=== PATIENT | female | born 1975 | race Caucasian/White ===

== ENCOUNTER 2017-01-22 19:17 | Emergency (ER) | payer OTHER ==
[~2017-01-22] VITALS: Ht 162.6 cm; Wt 68.0 kg
[2017-01-22] MEDS ORDERED: CETI10CA PO (19:31)
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
[2017-01-22 20:08] LABS: BASOPHILS % (AUTO) 0 % (0-10); EOSINOPHILS # (AUTO) 0.4 10^3/uL (0.0-0.3); EOSINOPHILS % (AUTO) 5 % (0-10); LYMPHOCYTES # (AUTO) 2.7 X 10^3 (1.0-4.0); LYMPHOCYTES % (AUTO) 32 % (12-44); MEAN CORPUSCULAR HEMOGLOBIN 31 PG (25-34); MEAN CORPUSCULAR HGB CONC 33 G/DL (32-36); MEAN CORPUSCULAR VOLUME 94 FL (80-99); MEAN PLATELET VOLUME 10.3 FL (7.4-10.4); MONOCYTES # (AUTO) 0.9 X 10^3 (0.0-1.0); MONOCYTES % (AUTO) 11 % (0-12); NEUTROPHILS # (AUTO) 4.5 X 10^3 (1.8-7.8); NEUTROPHILS % (AUTO) 53 % (42-75); PLATELET COUNT 261 10^3/uL (130-400); RED BLOOD COUNT 4.68 10^6/uL (4.35-5.85); RED CELL DISTRIBUTION WIDTH 13.2 % (10.0-14.5); WHITE BLOOD COUNT 8.6 10^3/uL (4.3-11.0)
[2017-01-22 20:27] LABS: ALANINE AMINOTRANSFERASE 64 U/L (0-55); ALBUMIN 4.1 GM/DL (3.2-4.5); AMYLASE 59 U/L (25-125); ANION GAP 6 MMOL/L (5-14); ASPARTATE AMINO TRANSFERASE 53 U/L (5-34); BLOOD UREA NITROGEN 13 MG/DL (7-18); BUN/CREATININE RATIO 18 (0-20); CALCIUM 9.6 MG/DL (8.5-10.1); CARBON DIOXIDE 26 MMOL/L (21-32); CHLORIDE 108 MMOL/L (98-107); CREATININE SERUM 0.71 MG/DL (0.60-1.30); GFR ESTIMATED > 60; GLUCOSE 93 MG/DL (70-105); HEMOLYSIS 10 (-100-29); ICTERUS 0.5 (-100-1.9); LIPASE 21 U/L (8-78); LIPEMIA 12 (-100-49); SODIUM 140 MMOL/L (135-145); TOTAL PROTEIN 7.1 GM/DL (6.4-8.2)
[2017-01-22 20:43] LABS: BILIRUBIN,URINE NEGATIVE (NEGATIVE); KETONES,URINE NEGATIVE (NEGATIVE); LEUKOCYTE ESTERASE ,URINE NEGATIVE (NEGATIVE); NITRITE,URINE NEGATIVE (NEGATIVE); PH,URINE 6 (5-9); PROTEIN,URINE NEGATIVE (NEGATIVE); UROBILINOGEN,URINE NORMAL (NORMAL)
[2017-01-22 20:43] LABS: BILIRUBIN,TOTAL 0.4 MG/DL (0.1-1.0)
[2017-01-22 21:06] LABS: WBC,URINE RARE /HPF
[2017-01-22] MEDS ORDERED: RX-ONDANSETRON 4 MG ODT (ZOFRAN) PPK #4 PO STA (21:09)
[2017-01-22] MEDS ORDERED: RX-HYDROCODONE/APAP 5/325 MG #4 TAB PK PO PRN (21:15)
[2017-01-22 21:21] VITALS: BP 124/80
--- OUTSIDE RECORDS SUMMARY | 2017-01-26 14:26 | XMS REPORT | Continuity of Care Document ---
Author Author [facility] Address Unknown Phone Unavailable Allergies Medications Problems Date Dx Coded Attending Type Code Diagnosis Diagnosed By 09/05/2013 ENMA WHITE DDS V72.2 DENTAL EXAMINATION Procedures Code Description Performed By Performed On D0140 LIMIT ORAL EVAL PROBLM FOCUS 09/05/2013 D0220 INTRAORAL PERIAPICAL FIRST F 09/05/2013 D2393 POST 3 SRFC RESINBASED CMPST 09/05/2013 Results Encounters ACCT No. Visit Date/Time Discharge Status Pt. Type Provider Facility Loc./Unit Complaint [id number] 09/05/2013 13:19:00 09/05/2013 23: 59:59 CLS Outpatient ENMA WHITE DDS
--- OUTSIDE RECORDS SUMMARY | 2017-01-26 14:26 | XMS REPORT | Continuity of Care Document ---
Author Author [employer] Organization [facility] Address Unknown Phone Unavailable Care Team Providers Care Shirt Folder Name Role Phone [employer] Unavailable Unavailable Problems Medications Allergies, Adverse Reactions, Alerts Immunizations Results Vital Signs Encounters Procedures Plan of Care Social History Assessment and Plan Family History Value Date Source Advance Directives Order Name Results Value Date Source
== END 2017-01-22 21:20 | disposition home or self-care (01) ==
LOC: ER 19:23
DX: K81.9 Cholecystitis, unspecified (principal); R19.7 Diarrhea, unspecified; F43.10 Post-traumatic stress disorder, unspecified; F41.9 Anxiety disorder, unspecified; F32.9 Major depressive disorder, single episode, unspecified; F17.210 Nicotine dependence, cigarettes, uncomplicated; Z90.710 Acquired absence of both cervix and uterus
CPT/HCPCS: 36415; 80053; 80306; 81000; 82150; 83690; 85025

== ENCOUNTER → 2017-01-23 | Outpatient (CLI) | payer OTHER ==
[~2017-01-23] MED LIST: CETI10CA PO
--- NOTE | 2017-01-23 15:51 | Diagnostic Imaging Report ---
PROCEDURE: US Gallbladder. TECHNIQUE: Multiple real-time grayscale images were obtained over the right upper quadrant in various projections. INDICATION: Right upper quadrant pain. COMPARISON: None available. FINDINGS: The liver is normal in size and echogenicity. There is no focal hepatic mass. The main portal vein is patent with antegrade flow. The gallbladder is distended without gallstones, wall thickening, or pericholecystic fluid. The common bile duct measures up to 0.4 cm in diameter. No intrahepatic biliary dilation. The visualized portions of the pancreas are normal. Portions of the head and tail are obscured by overlying bowel gas. The right kidney is normal in size. No hydronephrosis, shadowing calculi, or suspicious mass lesion. IMPRESSION: Normal right upper quadrant ultrasound. Dictated by: Dictated on workstation # [id number]
== END ==
LOC: RAD 14:25
PROVIDERS: ATTEND Family Medicine
DX: R10.11 Right upper quadrant pain (principal); R74.8 Abnormal levels of other serum enzymes
CPT/HCPCS: 76705

== ENCOUNTER → 2021-02-12 | Outpatient (CLI) | payer OTHER, MEDICARE, MEDICAID ==
--- NOTE | 2021-02-12 09:02 | Diagnostic Imaging Report ---
PROCEDURE: CT urinary tract, rule out kidney stone. TECHNIQUE: Multiple contiguous axial images were obtained through the abdomen and pelvis without the use of intravenous contrast. Auto Exposure Controls were utilized during the CT exam to meet ALARA standards for radiation dose reduction. INDICATION: Right flank pain FINDINGS: Unenhanced images of liver, gallbladder, pancreas, adrenal glands and spleen are unremarkable. There is faint punctate calcification in the posterior cortex of the lower pole of right kidney. No hydronephrosis or ureteric stone is identified. There is no free fluid in the abdomen or pelvis. Moderate amount of stool seen throughout the colon. There appears to be surgical suture in the right lower quadrant possibly from previous hysterectomy and appendectomy. Calcified phleboliths are seen. There is an approximately 2.2 cm cyst in the left ovary. Unopacified urinary bladder is unremarkable. There is localized L5-S1 degenerative disc disease. IMPRESSION: Minimal right nephrolithiasis. There is no evidence of obstructive uropathy. Dictated by: Dictated on workstation # [id number]
== END ==
LOC: RAD FS 02-11 16:34
PROVIDERS: ATTEND Nurse Practitioner Family
DX: N20.0 Calculus of kidney (principal)
CPT/HCPCS: 74176

== ENCOUNTER 2022-12-26 12:34 | Emergency (ER) | payer MEDICARE, MEDICAID ==
[~2022-12-26] VITALS: Ht 165 cm; Wt 65.7 kg
--- NOTE | 2022-12-26 13:12 | ED Abdominal Pain ---
General Chief Complaint: Abdominal/GI Problems Stated Complaint: ABD PAIN Nursing Triage Note: PT AMB TO RM 7 WITH C/O UPPER ABD PAIN THAT RADIATES TO THE BACK THAT STARTED 1 WEEK AGO. Source of Information: Patient Exam Limitations: No Limitations History of Present Illness Date Seen by Provider: December 26, 2022 Time Seen by Provider: 12:36 Initial Comments 47-year-old female presents to the ER with complaints of right upper quadrant abdominal pain and right mid back pain that has been intermittent for the last week. She reports that she thinks the pain is often worse after eating, but also occurs without eating. States it is not always after eating greasy foods, but does report 1 meal with greasy food that caused her to have severe pain almost instantly. She reports that at 4 AM this morning the pain was the worst. She reports cold sweats with the pain. Denies fevers. She denies chest pain, shortness of air. Reports nausea, no vomiting. Denies diarrhea, vaginal bleeding, vaginal discharge, dysuria. Last bowel movement was this morning at 4 AM. Past medical history includes bone spurs in her right knee, she does not take any medications regularly. 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 She does not want narcotic pain medicine. Allergies and Home Medications Allergies Coded Allergies: No Known Drug Allergies (Unverified , 01/22/17) Patient Home Medication List Home Medication List Reviewed: Yes Cetirizine HCl (Zyrtec) 10 Mg Capsule, 10 MG PO, (Reported) Entered as Reported by: CAMPOS SHAY on 01/22/171930 Review of Systems Review of Systems Constitutional: see HPI Past Xgrmeap-Tupcuh-Aoznvi Hx Patient Social History Tobacco Use?: Yes Tobacco type used: Cigarettes Substance use?: Yes Substance type: Methamphetamine (sober 21 months) Alcohol Use?: No Past Medical History Surgeries: Yes Adenoidectomy, Hysterectomy, Tonsillectomy Respiratory: No Cardiac: No Neurological: No Genitourinary: No Gastrointestinal: No Musculoskeletal: No Endocrine: No HEENT: No Cancer: No Psychosocial: Yes PTSD, Bipolar Integumentary: No Blood Disorders: No Physical Exam Vital Signs Vital Signs - First Documented 12/26/22 12/26/22 12:43 15:16 Pulse 84 Resp 16 B/P (MAP) 117/84 (95) Pulse Ox 98 O2 Delivery Room Air Capillary Refill : Height/Weight/BMI Height: 5'4.00" Weight: 150lbs. oz. 68.777752nm; 24.00 BMI Method:Stated General Appearance: WD/WN, no apparent distress Neck: supple, normal inspection Respiratory: lungs clear, normal breath sounds, no respiratory distress, no accessory muscle use Cardiovascular: regular rate, rhythm Gastrointestinal: normal bowel sounds, soft, tenderness (Mild right upper quadrant tenderness) Extremities: normal range of motion, normal inspection Back: no CVA tenderness Neurologic/Psychiatric: alert, normal mood/affect Skin: normal color, warm/dry Progress/Results/Core Measures Results/Orders Lab Results Laboratory Tests Test 12/26/22 13:43 12/26/22 13:44 Range/Units Urine Color YELLOW Urine Clarity CLEAR Urine pH 6.0 5-9 Urine Specific [place] 1.015 L 1.016-1.022 Urine Protein NEGATIVE NEGATIVE Urine Glucose (UA) NEGATIVE NEGATIVE Urine Ketones 1+ H NEGATIVE Urine Nitrite NEGATIVE NEGATIVE Urine Bilirubin NEGATIVE NEGATIVE Urine Urobilinogen 0.2 < = 1.0 MG/DL Urine Leukocyte Esterase NEGATIVE NEGATIVE Urine RBC (Auto) TRACE-I H NEGATIVE Urine RBC NONE /HPF Urine WBC 0-2 /HPF Urine Squamous Epithelial Cells 10-25 H /HPF Urine Renal Epithelial Cells 0-2 /HPF Urine Crystals NONE /LPF Urine Bacteria TRACE /HPF Urine Casts NONE /LPF Urine Mucus NEGATIVE /LPF Urine Culture Indicated NO White Blood Count 8.8 4.3-11.0 10^3/uL Red Blood Count 4.49 3.80-5.11 10^6/uL Hemoglobin 14.2 11.5-16.0 g/dL Hematocrit 42 35-52 % Mean Corpuscular Volume 94 80-99 fL Mean Corpuscular Hemoglobin 32 25-34 pg Mean Corpuscular Hemoglobin Concent 34 32-36 g/dL Red Cell Distribution Width 12.8 10.0-14.5 % Platelet Count 214 130-400 10^3/uL Mean Platelet Volume 11.1 9.0-12.2 fL Immature Granulocyte % (Auto) 0 % Neutrophils (%) (Auto) 68 42-75 % Lymphocytes (%) (Auto) 23 12-44 % Monocytes (%) (Auto) 6 0-12 % Eosinophils (%) (Auto) 2 0-10 % Basophils (%) (Auto) 1 0-10 % Neutrophils # (Auto) 5.9 1.8-7.8 10^3/uL Lymphocytes # (Auto) 2.0 1.0-4.0 10^3/uL Monocytes # (Auto) 0.6 0.0-1.0 10^3/uL Eosinophils # (Auto) 0.2 0.0-0.3 10^3/uL Basophils # (Auto) 0.1 0.0-0.1 10^3/uL Immature Granulocyte # (Auto) 0.0 0.0-0.1 10^3/uL Sodium Level 139 135-145 MMOL/L Potassium Level 3.7 3.6-5.0 MMOL/L Chloride Level 108 H 98-107 MMOL/L Carbon Dioxide Level 21 21-32 MMOL/L Anion Gap 10 5-14 MMOL/L Blood Urea Nitrogen 7 7-18 MG/DL Creatinine 0.68 0.60-1.30 MG/DL Estimat Glomerular Filtration Rate 107 BUN/Creatinine Ratio 10 Glucose Level 86 70-105 MG/DL Calcium Level 9.4 8.5-10.1 MG/DL Corrected Calcium 9.4 8.5-10.1 MG/DL Total Bilirubin 0.6 0.1-1.0 MG/DL Aspartate Amino Transf (AST/SGOT) 16 5-34 U/L Alanine Aminotransferase (ALT/SGPT) 12 0-55 U/L Alkaline Phosphatase 40 40-136 U/L Total Protein 6.4 6.4-8.2 GM/DL Albumin 4.0 3.2-4.5 GM/DL Amylase Level 51 25-125 U/L Lipase 20 8-78 U/L My Orders Orders - DOMINIQUE RICHARDS WASH OIL COOLER OPERATOR Ua Culture If Indicated (12/26/22 12:36) Urine Bedside (12/26/22 12:36) Comprehensive Metabolic Panel (12/26/22 12:51) Lipase (12/26/22 12:51) Amylase (12/26/22 12:51) Cbc With Automated Diff (12/26/22 12:51) Ketorolac Injection (Toradol Injection) (12/26/22 13:15) Ondansetron Injection (Zofran Injectio (12/26/22 13:15) Us Gallbladder [id number] (12/26/22 13:03) Ct Abdomen/Pelvis W (12/26/22 13:28) Iohexol Injection (Omnipaque 350 Mg/Ml 1 (12/26/22 13:45) Received Contrast (Hold Metformin- Contr (12/26/22 13:45) Ns (Ivpb) (Sodium Chloride 0.9% Ivpb Bag (12/26/22 13:45) Pantoprazole Injection (Protonix Injecti (12/26/22 14:45) Medications Given in ED Vital Signs/I&O 12/26/22 12/26/22 12:43 15:16 Pulse 84 84 Resp 16 B/P (MAP) 117/84 (95) 112/90 Pulse Ox 98 97 O2 Delivery Room Air Blood Pressure Mean: 95 Progress Progress Note : Progress Note Patient seen and evaluated, resting in bed, mild distress. Based on exam and symptoms, differential diagnosis includes but is not limited to urinary cholecystitis, nephrolithiasis, pyelonephritis, GERD, gastritis work-up initiated including CBC, CMP, amylase, lipase, UA, gallbladder ultrasound. Toradol and Zofran ordered. 1329 sales support technician reports that gallbladder appeared normal on ultrasound. CT abdomen pelvis ordered. [address] reviewed. CBC grossly normal. CMP grossly normal, chloride slightly elevated 108. UA shows 1+ ketones, trace RBCs, 0-2 WBCs, 10-25 squamous epithelial cells, trace bacteria this is likely a contaminated specimen. Ultrasound shows small amount of pelvic free fluid of uncertain significance. No other acute abnormalities. No evidence of gallbladder inflammation. Stable L5-S1 degenerative disc disease. Results discussed with patient. Informed her this is likely gastritis or peptic ulcer disease. We will treat with an IV dose of Protonix here and discharged with instructions to hand picker with 6-week course of omeprazole. Patient instructed that she can try Tums [id number] for rapid relief. Patient instructed to follow-up with surgery for evaluation for endoscopy. Discharge instructions and return precautions provided. Diagnostic Imaging Diagonstic Imaging: Ultrasound Plain Films/CT/US/NM/MRI: abdomen Comments [facility] [place], [place] NAME: JERALD REDDY [facility] REC#: [id number] PT STATUS: DEP ER : 1975 PHYSICIAN: DOMINIQUE RICHARDS APRN ADMIT DATE: 12/26/22/ER Signed Date of Exam:12/26/22 US GALLBLADDER [id number] PROCEDURE: US Gallbladder. TECHNIQUE: Multiple real-time grayscale images were obtained over the right upper quadrant in various projections. INDICATION: Right upper quadrant pain. The liver is upper limits of normal in size at 17.7 cm. Portal vein is patent and shows normal direction of flow. Gallbladder is mildly contracted but no stones or sludge are identified. There is no wall thickening or biliary ductal dilatation. The pancreas is unremarkable. Aorta is nonaneurysmal. IVC is patent. Right kidney is without calculi or hydronephrosis. There is no ascites. IMPRESSION: No evidence of cholelithiasis or acute cholecystitis. Dictated by: Dictated on workstation # [id number] Dict: 12/26/22 1345 Trans: 12/26/22 1515 [facility] [phone] Interpreted by: CHAD VITALE MD Electronically signed by: CHAD VITALE MD 12/26/22 1515 Diagonstic Imaging: CT Plain Films/CT/US/NM/MRI: abdomen, pelvis Comments [facility] [place] NAME: JERALD REDDY [facility] REC#: [id number] PT STATUS: [facility] ER : 1975 PHYSICIAN: DOMINIQUE RICHARDS APRN ADMIT DATE: 12/26/22/ER Signed Date of Exam:12/26/22 CT ABDOMEN/PELVIS W PROCEDURE: CT abdomen and pelvis with contrast. TECHNIQUE: Multiple contiguous axial images were obtained through the abdomen and pelvis after administration of intravenous contrast. Auto Exposure Controls were utilized during the CT exam to meet ALARA standards for radiation dose reduction. All CT scans use one or more of the following dose optimizing techniques: automated exposure control, MA and/or KvP adjustment based on patient size and exam type or iterative reconstruction. INDICATION: Right upper quadrant abdominal pain. COMPARISON: 02/12/2022 There is no focal hepatic, gallbladder, pancreatic or splenic abnormality. Adrenal glands are mildly enlarged with low-density suggestive of adrenal gland adenomas. Kidneys are unremarkable without evidence of mass, calculus or hydronephrosis. There is no evidence of hydroureter or obstructive uropathy. Unopacified bladder is unremarkable. There is small amount of pelvic free fluid. There is no evidence of focal inflammation or organized fluid collection within the abdomen or pelvis. There is stable L5-S1 degenerative disc disease. IMPRESSION: Mild pelvic free fluid of uncertain significance without other acute abnormality seen within the abdomen or pelvis. In particular, there is no evidence of gallbladder inflammation or obstructive uropathy. Dictated by: Dictated on workstation # [id number] Dict: 12/26/22 1413 Trans: 12/26/22 1710 [facility] [phone] Interpreted by: MAREN BASS MD Electronically signed by: MAREN BASS MD 12/26/22 1710 Departure Impression Primary Impression: Gastritis Qualified Codes: K29.00 - Acute gastritis without bleeding Disposition: HOME, SELF-CARE Condition: Stable Departure-Patient Inst. Decision time for Depature: 14:36 Referrals: [facility] (PCP/Family) Primary Care Physician SOURAV HOUSE DO Patient Instructions: Peptic Ulcers (DC), Ulcer and Gastritis Diet Add. Discharge Instructions: Get the 6-week qiet-ibf-zcwmhkz omeprazole and start taking. Avoid spicy foods, acidic foods, caffeine, coffee. See discharge instructions for other foods to avoid, and for foods that are good to eat. Follow-up with surgery for evaluation for endoscopy. Follow-up with primary care provider. Return for severe pain, or any other new, concerning, or worsening symptoms. All discharge instructions reviewed with patient and/or family. Voiced understanding. DOMINIQUE RICHARDS APRN December 26, 2022 13:12
[2022-12-26] MEDS ORDERED: ONDANSETRON 4 MG/2 ML (SDV) Z0FRAN IVP ONE (13:15)
[2022-12-26] MEDS ORDERED: KETOROLAC 15 MG/ML VIAL IVP ONE (13:15)
[2022-12-26] MEDS ORDERED: NS 100 ML (IVPB) BAG IV ONE (13:45)
[2022-12-26] MEDS ORDERED: IOHEXOL 350 MG/ML 100 ML (OMNIPAQUE 350) VIAL IV ONE (13:45)
[2022-12-26] MEDS ORDERED: HOLD METFORMIN - RECEIVED CONTRAST 20 ML VIAL IV SCH (13:45)
--- NOTE | 2022-12-26 13:49 | Diagnostic Imaging Report ---
PROCEDURE: US Gallbladder. TECHNIQUE: Multiple real-time grayscale images were obtained over the right upper quadrant in various projections. INDICATION: Right upper quadrant pain. The liver is upper limits of normal in size at 17.7 cm. Portal vein is patent and shows normal direction of flow. Gallbladder is mildly contracted but no stones or sludge are identified. There is no wall thickening or biliary ductal dilatation. The pancreas is unremarkable. Aorta is nonaneurysmal. IVC is patent. Right kidney is without calculi or hydronephrosis. There is no ascites. IMPRESSION: No evidence of cholelithiasis or acute cholecystitis. Dictated by: Dictated on workstation # [id number]
[2022-12-26 13:53] LABS: BASOPHILS # (AUTO) 0.1 10^3/uL (0.0-0.1); BASOPHILS % (AUTO) 1 % (0-10); EOSINOPHILS # (AUTO) 0.2 10^3/uL (0.0-0.3); EOSINOPHILS % (AUTO) 2 % (0-10); HEMATOCRIT 42 % (35-52); HEMOGLOBIN 14.2 g/dL (11.5-16.0); LYMPHOCYTES % (AUTO) 23 % (12-44); MEAN CORPUSCULAR HEMOGLOBIN 32 pg (25-34); MEAN CORPUSCULAR HGB CONC 34 g/dL (32-36); MEAN CORPUSCULAR VOLUME 94 fL (80-99); MEAN PLATELET VOLUME 11.1 fL (9.0-12.2); MONOCYTES # (AUTO) 0.6 10^3/uL (0.0-1.0); MONOCYTES % (AUTO) 6 % (0-12); NEUTROPHILS # (AUTO) 5.9 10^3/uL (1.8-7.8); NEUTROPHILS % (AUTO) 68 % (42-75); PLATELET COUNT 214 10^3/uL (130-400); WHITE BLOOD COUNT 8.8 10^3/uL (4.3-11.0)
[2022-12-26 13:53] LABS: BILIRUBIN,URINE NEGATIVE (NEGATIVE); CLARITY,URINE CLEAR; COLOR,URINE YELLOW; GLUCOSE, URINE (UA) NEGATIVE (NEGATIVE); KETONES,URINE 1+ (NEGATIVE); LEUKOCYTE ESTERASE ,URINE NEGATIVE (NEGATIVE); NITRITE,URINE NEGATIVE (NEGATIVE); PROTEIN,URINE NEGATIVE (NEGATIVE)
[2022-12-26 13:59] LABS: POTASSIUM 3.7 MMOL/L (3.6-5.0)
[2022-12-26 14:00] LABS: CALCIUM 9.4 MG/DL (8.5-10.1)
[2022-12-26 14:01] LABS: TOTAL PROTEIN 6.4 GM/DL (6.4-8.2)
[2022-12-26 14:01] LABS: BACTERIA,URINE TRACE /HPF; RENAL EPITHELIAL CELLS,URINE 0-2 /HPF; WBC,URINE 0-2 /HPF
[2022-12-26 14:03] LABS: BILIRUBIN,TOTAL 0.6 MG/DL (0.1-1.0)
[2022-12-26 14:05] LABS: CREATININE SERUM 0.68 MG/DL (0.60-1.30)
--- NOTE | 2022-12-26 14:18 | Diagnostic Imaging Report ---
PROCEDURE: CT abdomen and pelvis with contrast. TECHNIQUE: Multiple contiguous axial images were obtained through the abdomen and pelvis after administration of intravenous contrast. Auto Exposure Controls were utilized during the CT exam to meet ALARA standards for radiation dose reduction. All CT scans use one or more of the following dose optimizing techniques: automated exposure control, MA and/or KvP adjustment based on patient size and exam type or iterative reconstruction. INDICATION: Right upper quadrant abdominal pain. COMPARISON: 02/12/2022 There is no focal hepatic, gallbladder, pancreatic or splenic abnormality. Adrenal glands are mildly enlarged with low-density suggestive of adrenal gland adenomas. Kidneys are unremarkable without evidence of mass, calculus or hydronephrosis. There is no evidence of hydroureter or obstructive uropathy. Unopacified bladder is unremarkable. There is small amount of pelvic free fluid. There is no evidence of focal inflammation or organized fluid collection within the abdomen or pelvis. There is stable L5-S1 degenerative disc disease. IMPRESSION: Mild pelvic free fluid of uncertain significance without other acute abnormality seen within the abdomen or pelvis. In particular, there is no evidence of gallbladder inflammation or obstructive uropathy. Dictated by: Dictated on workstation # [id number]
[2022-12-26] MEDS ORDERED: PANTOPRAZOLE 40 MG (PROTONIX) VIAL IV ONE (14:45)
[2022-12-26 15:16] VITALS: BP 112/90
== END 2022-12-26 15:16 | disposition home or self-care (01) ==
LOC: EDUNIT# 12:34 → ER 12:36
DX: K29.70 Gastritis, unspecified, without bleeding (principal); M51.37 Other intervertebral disc degeneration, lumbosacral region; F17.210 Nicotine dependence, cigarettes, uncomplicated
CPT/HCPCS: 36415; 74177; 76705; 80053; 81000; 82150; 83690; 85025

== ENCOUNTER → 2022-12-26 | Emergency (ER) | payer MEDICARE, MEDICAID | LOC: EDUNIT# 06:24 → ER FS 06:27 | DX: R10.9 Unspecified abdominal pain (principal); M54.9 Dorsalgia, unspecified ==